=== PATIENT | male | born 1995 | race Caucasian/White ===

== ENCOUNTER 2021-04-25 10:05 | Emergency (ER) | payer OTHER ==
[2021-04-25 10:13] VITALS: BP 136/73; PULSE 75; TEMP 98.1; BMI 23.6
[2021-04-25] MEDS ORDERED: IBUPROFEN 600 MG TABLET (FP) PO ONE ×2 (11:13→11:37)
== END 2021-04-25 12:48 | disposition home or self-care (01) ==
LOC: JERFT 10:05 → JER 10:05 → JERFT 12:48
DX: M79.641 Pain in right hand (principal)
CPT/HCPCS: 73110-TC-RT-FY; 73130-TC-RT-FY; 99284-25

== ENCOUNTER 2025-01-09 19:25 | Emergency (ER) | payer OTHER ==
[2025-01-09 19:32] VITALS: BP 121/74; PULSE 86; RESP 18; TEMP 98; BMI 29.2
[2025-01-09] MEDS ORDERED: ACETAMINOPHEN 500 MG TABLET (FP) ONE (20:08)
[2025-01-09] MEDS: ACETAMINOPHEN 500 MG TABLET (FP) PO ONE (20:09)
== END 2025-01-09 20:12 | disposition home or self-care (01) ==
LOC: JERFT 19:25
DX: S90.31XA Contusion of right foot, initial encounter (principal); W22.09XA Striking against other stationary object, initial encounter; Y92.310 Basketball court as the place of occurrence of the external cause; Y93.67 Activity, basketball
CPT/HCPCS: 73630-TC-RT-FY; 99283-25